=== PATIENT | female | born 1985 | race Caucasian/White ===

== ENCOUNTER 2016-12-29 20:26 | Emergency (ER) | payer OTHER ==
[2016-12-29 20:39] VITALS: TEMP 98.4
--- NOTE | 2016-12-29 21:26 | ED ---
General Adult HPI - General Chief complaint: Chest Pain Stated complaint: chest pain Time Seen by Provider: 12/29/16 20:54 Source: patient, family, RN notes reviewed, old records reviewed Mode of arrival: wheelchair Limitations: no limitations - History of Present Illness Initial comments: Chief complaint and history of present illness a 31-year-old female with here with her significant other. The patient reports for the past week she's been having anterior left-sided chest discomfort that radiates to the left shoulder area and sometimes down the arm. Twisting turning deep breathing coughing and pushing on it increases pain. Nausea but no vomiting no sweats. Denies any injuries. - Related Data Home Medications Medication Instructions Recorded Confirmed Acetaminophen Tab [Tylenol Tab] 650 mg PO Q6H PRN 12/29/16 12/29/16 Escitalopram [Lexapro] 20 mg PO DAILY 12/29/16 12/29/16 Ibuprofen [Motrin] 600 mg PO Q8HR PRN 12/29/16 12/29/16 Previous Rx's Medication Instructions Recorded Ibuprofen [Motrin] 600 mg PO Q6HR PRN #20 tab 12/29/16 Allergies Allergy/AdvReac Type Severity Reaction Status Date / Time Penicillins Allergy Anaphylaxis Verified 12/29/16 21:11 hydrocodone bitartrate AdvReac Nausea Verified 12/29/16 21:11 [From Vicodin] Review of Systems ROS Statement: Those systems with pertinent positive or pertinent negative responses have been documented in the HPI. review of systems no headache or visual acuity changes. The discomfort is intermittent and comes and goes but can be recreated by coughing or pushing hard on her anterior chest wall. No abdominal pain no back pain. No neuro deficits complained of. All systems are reviewed. Past medical problems significant for endometriosis and possibly pericarditis thickening consideration of her explanation of something that happened multiple years ago. The patient's other problems include surgeries 4 C-sections, she had tubal ligation followed by hysterectomy. She had a fractured ankle with plates and screws. Family history significant for cancers and include cervical , brain lymphoma. Patient has ALLERGIES to penicillin and hydrocodone. She does smoke strongly encouraged stop advised her family physician about things that could help her stop. ROS Other: All systems not noted in ROS Statement are negative. Past Medical History Additional Past Medical History / Comment(s): endometriosis, elevated liver enzymes, fx left ankle-WAS using crutches and has a partial "air cast" on. History of Any Multi-Drug Resistant Organisms: None Reported Past Surgical History: Section, Hysterectomy, Orthopedic Surgery, Tubal Ligation Additional Past Surgical History / Comment(s): c/s x 4, LT ANKLE ORIF 08-29- Past Anesthesia/Blood Transfusion Reactions: Previous Problems w/ Anesthesia Additional Past Anesthesia/Blood Transfusion Reaction / Comment(s): skin itching on face, unknown family anesthesia hx. Past Psychological History: Depression Smoking Status: Current every day smoker Past Alcohol Use History: None Reported Past Drug Use History: Marijuana Additional Drug Use History / Comment(s): up to three x daily General Exam - General Exam Comments Initial Comments: General: The patient is awake and alert, in no distress, and does not appear acutely ill. Complains of chest pain that seems to be reproducible by deep breathing coughing hard palpation over anterior chest wall. Vital signs show temperature 98.4 pulse 85 respiratory rate 20 pulse ox 90% on room air blood pressure 127/ 63. Elevated systolic noted. Patient will be seen by her family physician Eye: Pupils are equal, round and reactive to light, extra-ocular movements are intact ; there is normal conjunctiva bilaterally. No signs of icterus. Ears, nose, mouth and throat: There are moist mucous membranes and no oral lesions. Neck: The neck is supple, there is no tenderness . Cardiovascular: There is a regular rate and rhythm. No murmur, rub or gallop is appreciated. Chest wall pain seems to be reproducible by coughing or taking deep breath and leaning forward. Respiratory: Lungs are clear to auscultation, respirations are non-labored, breath sounds are equal. No wheezes, stridor, rales, or rhonchi. Deep breathing increases discomfort Gastrointestinal: Soft, non-distended, non-tender abdomen without masses or organomegaly noted. There is no rebound or guarding present. No CVA tenderness. Bowel sounds are unremarkable. Back: There is no tenderness to palpation in the midline. There is no obvious deformity. No rashes noted. Musculoskeletal: Normal ROM, no tenderness, There is no pedal edema. There is no calf tenderness or swelling. Sensation intact. Pulses equal bilaterally 2+. Neurological: No neuro deficits Skin: Skin is warm and dry and no rashes or lesions are noted. Limitations: no limitations Course Vital Signs 12/29/16 20:38 Temperature 98.4 F Pulse Rate 85 Respiratory 20 Rate Blood Pressure 127/63 O2 Sat by Pulse 98 Oximetry EKG Findings - EKG Comments: EKG Findings:: EKG was done and reviewed at 2050 hrs. showing normal sinus rhythm no acute ST elevation no ectopy no ischemic changes. Rate 82. Arm was 198 QRS 94 QT [address] Briscoe Medical Decision Making - Medical Decision Making Medical decision making; patient's white count is 9.1 hemoglobin 13.9 hematocrit 41.7. D-dimer normal at 0.48 potassium 4.0 BUN 9 with a creatinine 0.7 GFR greater than 60. Glucose 108 Chest x-ray is done and reviewed by radiologist his impression is heart and mediastinum are normal. Lungs are clear. Diaphragm is normal. Bony thorax and soft tissues appear normal. Impression normal chest no change. As read by Dr. Coughlin Discuss costochondritis setter. The patient will be given Toradol emergency room. Advised to take ibuprofen 600 every 6 hours. Gentle stretching. Follow- up with her family physician or return emergency room as needed - Lab Data Result diagrams: 12/29/16 21:32 12/29/16 21:32 Lab Results 12/29/16 12/29/16 12/29/16 Range/Units 21:32 21:32 21:32 WBC 9.1 (3.8-10.6) k/uL RBC 4.69 (3.80-5.40) m/uL Hgb 13.9 (11.4-16.0) gm/dL Hct 41.7 (34.0-46.0) % MCV 88.8 (80.0-100.0) fL MCH 29.7 (25.0-35.0) pg MCHC 33.4 (31.0-37.0) g/dL RDW 12.7 (11.5-15.5) % Plt Count 275 (150-450) k/uL Neutrophils % 62 % Lymphocytes % 32 % Monocytes % 3 % Eosinophils % 2 % Basophils % 0 % Neutrophils # 5.6 (1.3-7.7) k/uL Lymphocytes # 2.9 (1.0-4.8) k/uL Monocytes # 0.3 (0-1.0) k/uL Eosinophils # 0.2 (0-0.7) k/uL Basophils # 0.0 (0-0.2) k/uL PT (9.0-12.0) sec INR (<1.1) APTT (22.0-30.0) sec D-Dimer (<0.60) mg/L FEU Sodium 141 (137-145) mmol/L Potassium 4.0 (3.5-5.1) mmol/L Chloride 105 (98-107) mmol/L Carbon Dioxide 27 (22-30) mmol/L Anion Gap 9 mmol/L BUN 9 (7-17) mg/dL Creatinine 0.71 (0.52-1.04) mg/dL Est GFR (MDRD) Af Amer >60 (>60 ml/min/1.73 sqM) Est GFR (MDRD) Non-Af >60 (>60 ml/min/1.73 sqM) Glucose 108 H (74-99) mg/dL Calcium 9.3 (8.4-10.2) mg/dL Magnesium 2.0 (1.6-2.3) mg/dL Total Bilirubin 0.5 (0.2-1.3) mg/dL AST 27 (14-36) U/L ALT 46 (9-52) U/L Alkaline Phosphatase 90 (38-126) U/L Total Creatine Kinase 47 (30-135) U/L CK-MB (CK-2) <0.2 (0.0-2.4) ng/mL CK-MB (CK-2) Rel Index Troponin I <0.012 (0.000-0.034) ng/mL Total Protein 7.0 (6.3-8.2) g/dL Albumin 3.9 (3.5-5.0) g/dL 12/29/16 Range/Units 21:32 WBC (3.8-10.6) k/uL RBC (3.80-5.40) m/uL Hgb (11.4-16.0) gm/dL Hct (34.0-46.0) % MCV (80.0-100.0) fL MCH (25.0-35.0) pg MCHC (31.0-37.0) g/dL RDW (11.5-15.5) % Plt Count (150-450) k/uL Neutrophils % % Lymphocytes % % Monocytes % % Eosinophils % % Basophils % % Neutrophils # (1.3-7.7) k/uL Lymphocytes # (1.0-4.8) k/uL Monocytes # (0-1.0) k/uL Eosinophils # (0-0.7) k/uL Basophils # (0-0.2) k/uL PT 9.6 (9.0-12.0) sec INR 0.9 (<1.1) APTT 27.1 (22.0-30.0) sec D-Dimer 0.48 (<0.60) mg/L FEU Sodium (137-145) mmol/L Potassium (3.5-5.1) mmol/L Chloride (98-107) mmol/L Carbon Dioxide (22-30) mmol/L Anion Gap mmol/L BUN (7-17) mg/dL Creatinine (0.52-1.04) mg/dL Est GFR (MDRD) Af Amer (>60 ml/min/1.73 sqM) Est GFR (MDRD) Non-Af (>60 ml/min/1.73 sqM) Glucose (74-99) mg/dL Calcium (8.4-10.2) mg/dL Magnesium (1.6-2.3) mg/dL Total Bilirubin (0.2-1.3) mg/dL AST (14-36) U/L ALT (9-52) U/L Alkaline Phosphatase (38-126) U/L Total Creatine Kinase (30-135) U/L CK-MB (CK-2) (0.0-2.4) ng/mL CK-MB (CK-2) Rel Index Troponin I (0.000-0.034) ng/mL Total Protein (6.3-8.2) g/dL Albumin (3.5-5.0) g/dL Disposition Clinical Impression: Costochondritis, acute Disposition: HOME SELF-CARE Condition: Fair Instructions: Costochondritis (ED) Additional Instructions: Take ibuprofen 600 mg every 6 hours for discomfort. No heavy lifting to gentle stretching. Follow-up with your family physician. If you don't have one follow -up with Prescriptions: Ibuprofen [Motrin] 600 mg PO Q6HR PRN #20 tab PRN Reason: Pain Time of Disposition: 22:34
[2016-12-29 21:46] LABS: Basophils % (A) 0 %; CH 30.5; CHCM 34.5; Eosinophils # (A) 0.2 k/uL (0-0.7); Eosinophils % (A) 2 %; HCT 41.7 % (34.0-46.0); HDW 2.49; HGB 13.9 gm/dL (11.4-16.0); Luc # (Auto) 0.13; Luc % (Auto) 1; Lymphocytes # (A) 2.9 k/uL (1.0-4.8); Lymphocytes % (A) 32 %; MCH 29.7 pg (25.0-35.0); MCHC 33.4 g/dL (31.0-37.0); MCV 88.8 fL (80.0-100.0); Monocytes # (A) 0.3 k/uL (0-1.0); Monocytes % (A) 3 %; Neutrophils # (A) 5.6 k/uL (1.3-7.7); Neutrophils % (A) 62 %; RBC 4.69 m/uL (3.80-5.40); RDW 12.7 % (11.5-15.5); WBC 9.1 k/uL (3.8-10.6)
[2016-12-29 21:57] LABS: ALT 46 U/L (9-52); AST 27 U/L (14-36); Alkaline Phosphatase 90 U/L (38-126); Anion Gap 9 mmol/L; Blood Urea Nitrogen 9 mg/dL (7-17); Calcium 9.3 mg/dL (8.4-10.2); Carbon Dioxide 27 mmol/L (22-30); Chloride 105 mmol/L (98-107); Glucose 108 mg/dL (74-99); Non-African American GFR(MDRD) >60 (>60 ml/min/1.73 sqM); Sodium 141 mmol/L (137-145); Total Bilirubin 0.5 mg/dL (0.2-1.3)
[2016-12-29 21:59] LABS: INR 0.9 (<1.1)
[2016-12-29 22:00] LABS: Partial Thromboplastin Time 27.1 sec (22.0-30.0); Prothrombin Time 9.6 sec (9.0-12.0)
--- NOTE | 2016-12-29 22:06 | XR ---
EXAMINATION TYPE: XR chest 2V DATE OF EXAM: 12/29/2016 10:00 PM COMPARISON: 01/06/2014 HISTORY: Intermittent chest pain TECHNIQUE: Frontal and lateral views of the chest are obtained. FINDINGS: Heart and mediastinum are normal. Lungs are clear. Diaphragm is normal. Bony thorax and so ft tissues appear normal. IMPRESSION: Normal chest. No change.
[2016-12-29 22:08] LABS: Creatine Kinase 47 U/L (30-135)
[2016-12-29 22:20] LABS: Creatine Kinase MB <0.2 ng/mL (0.0-2.4); Troponin I <0.012 ng/mL (0.000-0.034)
[2016-12-29] MEDS ORDERED: KETOROLAC 30 MG/ML 1 ML VIAL IVP STA (22:30)
[2016-12-29 23:01] VITALS: BP 116/74; PULSE 71; RESP 16
== END 2016-12-29 23:01 | disposition home or self-care (01) ==
LOC: EC 20:26
DX: M94.0 Chondrocostal junction syndrome [Tietze] (principal); F32.9 Major depressive disorder, single episode, unspecified; Z88.5 Allergy status to narcotic agent; Z88.0 Allergy status to penicillin; Z88.8 Allergy status to other drugs, medicaments and biological substances; Z79.899 Other long term (current) drug therapy; F17.200 Nicotine dependence, unspecified, uncomplicated
CPT/HCPCS: 36415; 93005; 85379; 80053; 82550; 82553; 83735; 84484; 85025; 85610; 85730; 71020; 99285; 96374; J1885

== ENCOUNTER 2017-04-16 09:36 | Inpatient (IN) | payer MEDICAID, OTHER ==
--- NOTE | 2017-04-16 10:10 | ED ---
Psych HPI - General Chief Complaint: Abdominal Pain Stated Complaint: Abd pain Time Seen by Provider: 04/16/17 09:41 Source: patient, RN notes reviewed Mode of arrival: ambulatory - History of Present Illness Initial Comments: Patient is a 31-year-old female presents emergency room for psychiatric evaluation. Patient states she suffers from PTSD from her daughter passing away about 5 years ago. Patient states she's been on Lexapro for the past 5 years. Patient states she takes Lexapro on and off due to random episodes of severe depression. Patient states over the past few weeks she's been very depressed. Patient states been feeling suicidal. Patient states that she's been taking Lexapro for the past 3 weeks with no relief of symptoms. Patient states today he has been having severe suicidal thoughts and needs help. Patient denies homicidal ideations. Patient denies chest pain shortness of breath. Patient denies abdominal pain. Patient denies nausea or vomiting. Patient denies alcohol use. Patient states she smoked marijuana this morning. Patient denies any other drug use. Patient denies any past medical history. Patient denies visual or auditory hallucinations. - Related Data Home Medications Medication Instructions Recorded Confirmed Escitalopram [Lexapro] 20 mg PO DAILY 12/29/16 04/16/17 Ibuprofen [Motrin] 600 mg PO QID PRN 12/29/16 04/16/17 Albuterol Sulfate [Ventolin Hfa] 3 puff INHALATION RT-Q4H PRN 04/16/17 04/16/17 Hydrocodone/Acetaminophen [[place] 1 tab PO TID PRN 04/16/17 04/16/17 10-325] Allergies Allergy/AdvReac Type Severity Reaction Status Date / Time Penicillins Allergy Rash/Hives Verified 04/16/17 09:49 hydrocodone bitartrate AdvReac Nausea Verified 04/16/17 09:49 [From Vicodin] Review of Systems ROS Statement: Those systems with pertinent positive or pertinent negative responses have been documented in the HPI. ROS Other: All systems not noted in ROS Statement are negative. Past Medical History Additional Past Medical History / Comment(s): endometriosis, elevated liver enzymes, fx left ankle-WAS using crutches and has a partial "air cast" on. History of Any Multi-Drug Resistant Organisms: None Reported Past Surgical History: Section, Hysterectomy, Orthopedic Surgery, Tubal Ligation Additional Past Surgical History / Comment(s): c/s x 4, LT ANKLE ORIF --14 Past Anesthesia/Blood Transfusion Reactions: Previous Problems w/ Anesthesia Additional Past Anesthesia/Blood Transfusion Reaction / Comment(s): skin itching on face, unknown family anesthesia hx. Past Psychological History: Depression Smoking Status: Current every day smoker Past Alcohol Use History: None Reported Past Drug Use History: Marijuana Additional Drug Use History / Comment(s): up to three x daily General Exam - General Exam Comments Initial Comments: Sitting in exam room, no acute distress, tearful. Limitations: no limitations General appearance: alert, in no apparent distress Head exam: Present: atraumatic, normocephalic, normal inspection Eye exam: Present: normal appearance ENT exam: Present: normal exam Neck exam: Present: normal inspection Respiratory exam: Present: normal lung sounds bilaterally. Absent: respiratory distress Cardiovascular Exam: Present: regular rate, normal rhythm, normal heart sounds Extremities exam: Present: normal inspection Back exam: Present: normal inspection Neurological exam: Present: alert, oriented X3, CN II-XII intact, normal gait Psychiatric exam: Present: normal affect, depressed Skin exam: Present: warm, dry, intact, normal color. Absent: rash Course Vital Signs 04/16/17 09:37 Temperature 98.9 F Pulse Rate 104 H Respiratory 20 Rate Blood Pressure 119/69 O2 Sat by Pulse 98 Oximetry Medical Decision Making - Medical Decision Making patient is a 31her old female presents to the emergency room for psychiatric evaluation. Patient initially came here and told triage that she was having abdominal pain. When I came in and spoke to patient she did admit that she does not have abdominal pain and was feeling suicidal. Patient medically cleared to be evaluated by psych. Psych did evaluate patient and patient does meet admission criteria. - Lab Data Lab Results 04/16/17 04/16/17 04/16/17 Range/Units 11:30 11:30 11:30 Urine Color Yellow Urine Appearance Cloudy H (Clear) Urine pH 6.0 (5.0-8.0) Ur Specific [place] 1.021 (1.001-1.035) Urine Protein Trace H (Negative) Urine Glucose (UA) Negative (Negative) Urine Ketones Trace H (Negative) Urine Blood Negative (Negative) Urine Nitrite Negative (Negative) Urine Bilirubin Negative (Negative) Urine Urobilinogen 2.0 (<2.0) mg/dL Ur Leukocyte Esterase Negative (Negative) Urine WBC 2 (0-5) /hpf Ur Squamous Epith Cells 9 H (0-4) /hpf Urine Bacteria Rare H (None) /hpf Urine Mucus Few H (None) /hpf Urine HCG, Qual Not Detected (Not Detectd) Urine Opiates Screen Not Detected (NotDetected) Ur Oxycodone Screen Not Detected (NotDetected) Urine Methadone Screen Not Detected (NotDetected) Ur Propoxyphene Screen Not Detected (NotDetected) Ur Barbiturates Screen Not Detected (NotDetected) U Tricyclic Antidepress Not Detected (NotDetected) Ur Phencyclidine Scrn Not Detected (NotDetected) Ur Amphetamines Screen Not Detected (NotDetected) U Methamphetamines Scrn Not Detected (NotDetected) U Benzodiazepines Scrn Not Detected (NotDetected) Urine Cocaine Screen Not Detected (NotDetected) U Marijuana (THC) Screen Detected H (NotDetected) Disposition Clinical Impression: PTSD (post-traumatic stress disorder), Suicidal ideation Disposition: ADMITTED IP TO THIS HOSP Condition: Stable Decision Date: 04/16/17
[2017-04-16 11:52] LABS: Appearance,Urine Cloudy (Clear); Bacteria,Urine Rare /hpf; Bilirubin,Urine Negative (Negative); Glucose,Urine (UA) Negative (Negative); Ketones,Urine Trace (Negative); Leukocyte Esterase,Urine Negative (Negative); Mucus,Urine Few /hpf; Nitrite,Urine Negative (Negative); Particle Count 10368; Protein,Urine Trace (Negative); Specific Gravity,Urine 1.021 (1.001-1.035); Squamous Epithelial Cell,Urine 9 /hpf (0-4); UA Billing (MACRO vs. MICRO) MICRO; WBC,Urine 2 /hpf (0-5)
[2017-04-16] MEDS ORDERED: ACETAMINOPHEN TAB 325 MG TAB PO PRN (12:27)
[2017-04-16] MEDS ORDERED: MAGNESIUM HYDROXIDE 2,400 MG/10 ML CUP PO PRN (12:27)
[2017-04-16] MEDS ORDERED: LORazepam 1 MG TAB PO PRN (12:27)
[2017-04-16] MEDS ORDERED: MAG HYDROX/AL HYDROX/SIMETH 30 ML CUP PO PRN (12:27)
[2017-04-16] MEDS ORDERED: IBUPROFEN 600 MG TAB PO PRN (12:32)
[2017-04-16] MEDS ORDERED: ALBUTEROL INHALER 60 PUFF/8 GM INHALER INHALATION PRN (12:32)
[2017-04-16] MEDS ORDERED: LORazepam 2 MG/ML SYRINGE IM PRN (14:15)
[2017-04-16] MEDS ORDERED: NICOTINE 14MG/24HR PATCH TRANSDERM STA (16:47)
[2017-04-16] MEDS: MUPIROCIN CALCIUM 2% CREAM 15 GM TUBE TOPICAL SCH (21:35)
[2017-04-17 06:41] VITALS: BP 103/59; PULSE 75; RESP 16; TEMP 98
[2017-04-17] MEDS: MUPIROCIN CALCIUM 2% CREAM 15 GM TUBE TOPICAL SCH (08:35)
[2017-04-17 08:51] LABS: Basophils % (A) 0 %; CH 30.4; CHCM 33.6; Eosinophils # (A) 0.1 k/uL (0-0.7); Eosinophils % (A) 1 %; HCT 46.5 % (34.0-46.0); HDW 2.42; HGB 15.2 gm/dL (11.4-16.0); Luc # (Auto) 0.13; Luc % (Auto) 1; Lymphocytes % (A) 23 %; MCH 29.7 pg (25.0-35.0); MCHC 32.7 g/dL (31.0-37.0); MCV 90.8 fL (80.0-100.0); Mean Platelet Volume 7.1; Monocytes # (A) 0.3 k/uL (0-1.0); Monocytes % (A) 4 %; Neutrophils # (A) 6.3 k/uL (1.3-7.7); Neutrophils % (A) 71 %; RBC 5.12 m/uL (3.80-5.40); RDW 12.9 % (11.5-15.5); WBC 8.8 k/uL (3.8-10.6); WBC (Perox) 8.92
[2017-04-17] MEDS ORDERED: NICOTINE 14MG/24HR PATCH TRANSDERM SCH (09:00)
[2017-04-17] MEDS ORDERED: ESCITALOPRAM 20 MG TAB PO SCH (09:00)
[2017-04-17 09:11] LABS: ALT 39 U/L (9-52); AST 27 U/L (14-36); Alkaline Phosphatase 92 U/L (38-126); Anion Gap 11 mmol/L; Blood Urea Nitrogen 7 mg/dL (7-17); Calcium 9.7 mg/dL (8.4-10.2); Carbon Dioxide 24 mmol/L (22-30); Chloride 109 mmol/L (98-107); Glucose 95 mg/dL (74-99); Non-African American GFR(MDRD) >60 (>60 ml/min/1.73 sqM); Sodium 144 mmol/L (137-145); Total Bilirubin 0.8 mg/dL (0.2-1.3); Total Protein 7.3 g/dL (6.3-8.2)
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
== END 2017-04-17 13:35 | disposition home or self-care (01) | DRG 882 ==
LOC: EC 09:36 → 3MHU 12:23
PROVIDERS: ADMIT Psychiatry & Neurology Addiction Medicine; ATTEND Psychiatry & Neurology Addiction Medicine
DX: F43.29 Adjustment disorder with other symptoms (principal); R45.851 Suicidal ideations; Z86.32 Personal history of gestational diabetes; S61.512A Laceration without foreign body of left wrist, initial encounter; F41.0 Panic disorder [episodic paroxysmal anxiety]; N80.9 Endometriosis, unspecified; E66.9 Obesity, unspecified; F17.200 Nicotine dependence, unspecified, uncomplicated; F12.90 Cannabis use, unspecified, uncomplicated; Z82.49 Family history of ischemic heart disease and other diseases of the circulatory system; Z79.899 Other long term (current) drug therapy; Z88.5 Allergy status to narcotic agent; Z88.0 Allergy status to penicillin; Z86.59 Personal history of other mental and behavioral disorders; Z79.1 Long term (current) use of non-steroidal anti-inflammatories (NSAID); Z79.891 Long term (current) use of opiate analgesic; Z63.0 Problems in relationship with spouse or partner; Z90.710 Acquired absence of both cervix and uterus; Z68.38 Body mass index [BMI] 38.0-38.9, adult; Z98.51 Tubal ligation status; Z81.1 Family history of alcohol abuse and dependence; Z81.8 Family history of other mental and behavioral disorders; Z87.81 Personal history of (healed) traumatic fracture; X78.1XXA Intentional self-harm by knife, initial encounter; Y92.009 Unspecified place in unspecified non-institutional (private) residence as the place of occurrence of the external cause
CPT/HCPCS: 80053; 80306; 81001; 81025; 82075; 84443; 85025; 99284

== ENCOUNTER 2017-09-03 15:01 | Emergency (ER) | payer OTHER ==
[2017-09-03] MEDS ORDERED: KETOROLAC 60 MG/2 ML VIAL IM STA (15:46)
--- NOTE | 2017-09-03 15:48 | ED ---
General Adult HPI - General Chief complaint: Urogenital Stated complaint: Female Time Seen by Provider: 09/03/17 15:10 Source: patient, RN notes reviewed Mode of arrival: ambulatory Limitations: no limitations - History of Present Illness Initial comments: This is a 31-year-old female presents emergency department stating she had a hysterectomy last year. Patient states she still has both of her ovaries. Patient states in the last 3 weeks she's been having pain in her lower abdomen right where her hysterectomy scar is. Patient states that she lies flat it doesn't hurt. Patient states she coughs or sneezes it hurts right along that scar. Patient denies any nausea vomiting diarrhea. Patient denies any vaginal discharge. Patient denies any problems with eating or drinking. Patient denies any recent fever or chills. Patient denies any dysuria hematuria urinary frequency. - Related Data Home Medications Medication Instructions Recorded Confirmed No Known Home Medications [No 09/03/17 09/03/17 Known Home Medications] Allergies Allergy/AdvReac Type Severity Reaction Status Date / Time Penicillins Allergy Rash/Hives Verified 09/03/17 15:48 hydrocodone bitartrate AdvReac Nausea Verified 09/03/17 15:48 [From Vicodin] Review of Systems ROS Statement: Those systems with pertinent positive or pertinent negative responses have been documented in the HPI. ROS Other: All systems not noted in ROS Statement are negative. Past Medical History Additional Past Medical History / Comment(s): endometriosis, elevated liver enzymes, fx left ankle-WAS using crutches and has a partial "air cast" on. History of Any Multi-Drug Resistant Organisms: None Reported Past Surgical History: Section, Hysterectomy, Orthopedic Surgery, Tubal Ligation Additional Past Surgical History / Comment(s): c/s x 4, LT ANKLE ORIF 08-29-14 Past Anesthesia/Blood Transfusion Reactions: Previous Problems w/ Anesthesia Additional Past Anesthesia/Blood Transfusion Reaction / Comment(s): skin itching on face, unknown family anesthesia hx. Past Psychological History: Depression, PTSD Smoking Status: Current every day smoker Past Alcohol Use History: None Reported Past Drug Use History: Marijuana - Past Family History Father Additional Family Medical History / Comment(s): Father is alive at age 50 with history of alcoholism, hypertension, hyperlipidemia. Mother Additional Family Medical History / Comment(s): Mother is alive at age 53 with history of brain aneurysm and alcohol abuse. Brother(s) Additional Family Medical History / Comment(s): Patient has 3 half brothers. One has history of lead poisoning, one brother has history of scoliosis, one has no major medical problems. Patient does not have any sisters. Patient has 3 children currently living. One has from a drowning accident. And patient cares for her stepdaughter as well. General Exam - General Exam Comments Initial Comments: GENERAL: Patient is well-developed and well-nourished. Patient is nontoxic and well- hydrated and is in no acute distress. ENT: Neck is soft and supple. No significant lymphadenopathy is noted. Oropharynx is clear. Moist mucous membranes. Neck has full range of motion without eliciting any pain. EYES: The sclera were anicteric and conjunctiva were pink and moist. Extraocular movements were intact and pupils were equal round and reactive to light. Eyelids were unremarkable. PULMONARY: Unlabored respirations. Good breath sounds bilaterally. No audible rales rhonchi or wheezing was noted. CARDIOVASCULAR: There is a regular rate and rhythm without any murmurs gallops or rubs. ABDOMEN: Patient has some abdominal pain along the hysterectomy incision but there is no bulging no obvious hernia no redness or swelling. SKIN: Skin is clear with no lesions or rashes and otherwise unremarkable. NEUROLOGIC: Patient is alert and oriented x3. Cranial nerves II through XII are grossly intact. Motor and sensory are also intact. Normal speech, volume and content. Symmetrical smile. MUSCULOSKELETAL: Normal extremities with adequate strength and full range of motion. No lower extremity swelling or edema. No calf tenderness. LYMPHATICS: No significant lymphadenopathy is noted PSYCHIATRIC: Normal psychiatric evaluation. Normal interpersonal interactions appears functionally intact in deals appropriately with others. No signs of depression. No signs of anxiety. Limitations: no limitations Course Vital Signs 09/03/17 15:11 Temperature 98.1 F Pulse Rate 80 Respiratory 16 Rate Blood Pressure 130/70 O2 Sat by Pulse 98 Oximetry Medical Decision Making - Lab Data Result diagrams: 09/03/17 16:03 09/03/17 16:03 Lab Results 09/03/17 09/03/17 09/03/17 Range/Units 16:03 16:03 16:03 WBC 10.4 (3.8-10.6) k/uL RBC 4.74 (3.80-5.40) m/uL Hgb 14.7 (11.4-16.0) gm/dL Hct 43.2 (34.0-46.0) % MCV 91.2 (80.0-100.0) fL MCH 31.0 (25.0-35.0) pg MCHC 34.0 (31.0-37.0) g/dL RDW 14.0 (11.5-15.5) % Plt Count 313 (150-450) k/uL Neutrophils % 67 % Lymphocytes % 27 % Monocytes % 4 % Eosinophils % 1 % Basophils % 0 % Neutrophils # 6.9 (1.3-7.7) k/uL Lymphocytes # 2.8 (1.0-4.8) k/uL Monocytes # 0.4 (0-1.0) k/uL Eosinophils # 0.1 (0-0.7) k/uL Basophils # 0.0 (0-0.2) k/uL Sodium 140 (137-145) mmol/L Potassium 4.0 (3.5-5.1) mmol/L Chloride 109 H (98-107) mmol/L Carbon Dioxide 22 (22-30) mmol/L Anion Gap 9 mmol/L BUN 9 (7-17) mg/dL Creatinine 0.84 (0.52-1.04) mg/dL Est GFR (MDRD) Af Amer >60 (>60 ml/min/1.73 sqM) Est GFR (MDRD) Non-Af >60 (>60 ml/min/1.73 sqM) Glucose 91 (74-99) mg/dL Calcium 9.2 (8.4-10.2) mg/dL Total Bilirubin 0.2 (0.2-1.3) mg/dL AST 22 (14-36) U/L ALT 61 H (9-52) U/L Alkaline Phosphatase 102 (38-126) U/L Total Protein 7.0 (6.3-8.2) g/dL Albumin 4.0 (3.5-5.0) g/dL Urine Color Yellow Urine Appearance Clear (Clear) Urine pH 6.5 (5.0-8.0) Ur Specific [place] 1.020 (1.001-1.035) Urine Protein Trace H (Negative) Urine Glucose (UA) Negative (Negative) Urine Ketones Negative (Negative) Urine Blood Negative (Negative) Urine Nitrite Negative (Negative) Urine Bilirubin Negative (Negative) Urine Urobilinogen 2.0 (<2.0) mg/dL Ur Leukocyte Esterase Negative (Negative) Disposition Clinical Impression: Abdominal muscle strain Disposition: HOME SELF-CARE Condition: Good Instructions: Muscle Strain (ED) Additional Instructions: Patient should take motrin every 6 hours Referrals: Nonstaff,Physician [Primary Care Provider] - 1-2 days Time of Disposition: 17:45
[2017-09-03 16:19] LABS: Basophils % (A) 0 %; CH 31.4; CHCM 34.6; Eosinophils # (A) 0.1 k/uL (0-0.7); Eosinophils % (A) 1 %; HCT 43.2 % (34.0-46.0); HDW 2.49; HGB 14.7 gm/dL (11.4-16.0); Luc % (Auto) 1; Lymphocytes # (A) 2.8 k/uL (1.0-4.8); Lymphocytes % (A) 27 %; MCV 91.2 fL (80.0-100.0); Mean Platelet Volume 7.6; Monocytes # (A) 0.4 k/uL (0-1.0); Monocytes % (A) 4 %; Neutrophils # (A) 6.9 k/uL (1.3-7.7); Neutrophils % (A) 67 %; RBC 4.74 m/uL (3.80-5.40); WBC 10.4 k/uL (3.8-10.6); WBC (Perox) 10.18
[2017-09-03 16:22] LABS: Appearance,Urine Clear (Clear); Bilirubin,Urine Negative (Negative); Glucose,Urine (UA) Negative (Negative); Ketones,Urine Negative (Negative); Leukocyte Esterase,Urine Negative (Negative); Nitrite,Urine Negative (Negative); PH, Urine 6.5 (5.0-8.0); Protein,Urine Trace (Negative); UA Billing (MACRO vs. MICRO) CHEM
[2017-09-03 16:33] LABS: ALT 61 U/L (9-52); AST 22 U/L (14-36); Alkaline Phosphatase 102 U/L (38-126); Anion Gap 9 mmol/L; Blood Urea Nitrogen 9 mg/dL (7-17); Calcium 9.2 mg/dL (8.4-10.2); Carbon Dioxide 22 mmol/L (22-30); Chloride 109 mmol/L (98-107); Glucose 91 mg/dL (74-99); Non-African American GFR(MDRD) >60 (>60 ml/min/1.73 sqM); Sodium 140 mmol/L (137-145); Total Bilirubin 0.2 mg/dL (0.2-1.3)
[2017-09-03 18:31] VITALS: BP 120/66; PULSE 69; RESP 19; TEMP 98.4
== END 2017-09-03 18:31 | disposition home or self-care (01) ==
LOC: EC 15:01
DX: S39.011A Strain of muscle, fascia and tendon of abdomen, initial encounter (principal); R05 Cough; F17.200 Nicotine dependence, unspecified, uncomplicated; Z88.0 Allergy status to penicillin; Z88.5 Allergy status to narcotic agent; Z90.710 Acquired absence of both cervix and uterus; Z98.51 Tubal ligation status
CPT/HCPCS: 99283 ×2; 96372 ×2; 36415; 80053; 85025; 81003; J1885

== ENCOUNTER 2018-07-18 12:12 | Emergency (ER) | payer OTHER ==
[2018-07-18 12:38] VITALS: RESP 17
--- NOTE | 2018-07-18 12:54 | ED ---
Lower Extremity Injury HPI - General Chief Complaint: Extremity Injury, Lower Stated Complaint: left knee pain Time Seen by Provider: 07/18/18 12:41 Source: patient, RN notes reviewed Mode of arrival: wheelchair Limitations: no limitations - History of Present Illness Initial Comments: This a 32-year-old female presents emergency Department with chief complaint of left knee pain. Patient states she's had some ongoing issues with her knee but states it's much more noticeable that she has been working longer hours and standing on her feet 6 days a week. Patient states that he feels he feels crunching in her knee states is more on the lateral aspect and worse when she is standing. Patient denies any swelling, bruising. Patient denies any fever, chills, redness or any discoloration to her leg or knee. Patient denies any exact trauma but states that a little over a year ago she had surgery on her left ankle for fracture. - Related Data Previous Rx's Medication Instructions Recorded Ibuprofen [Motrin] 600 mg PO Q8HR PRN #30 tab 07/18/18 Allergies Allergy/AdvReac Type Severity Reaction Status Date / Time Penicillins Allergy Rash/Hives Verified 09/03/17 15:48 hydrocodone bitartrate AdvReac Nausea Verified 09/03/17 15:48 [From Vicodin] Review of Systems ROS Statement: Those systems with pertinent positive or pertinent negative responses have been documented in the HPI. ROS Other: All systems not noted in ROS Statement are negative. Past Medical History Additional Past Medical History / Comment(s): endometriosis, elevated liver enzymes, fx left ankle-WAS using crutches and has a partial "air cast" on. History of Any Multi-Drug Resistant Organisms: None Reported Past Surgical History: Section, Hysterectomy, Orthopedic Surgery, Tubal Ligation Additional Past Surgical History / Comment(s): c/s x 4, LT ANKLE ORIF 08-29-14 Past Anesthesia/Blood Transfusion Reactions: Previous Problems w/ Anesthesia Additional Past Anesthesia/Blood Transfusion Reaction / Comment(s): skin itching on face, unknown family anesthesia hx. Past Psychological History: Depression, PTSD Smoking Status: Current every day smoker Past Alcohol Use History: None Reported Past Drug Use History: Marijuana - Past Family History Father Additional Family Medical History / Comment(s): Father is alive at age 50 with history of alcoholism, hypertension, hyperlipidemia. Mother Additional Family Medical History / Comment(s): Mother is alive at age 53 with history of brain aneurysm and alcohol abuse. Brother(s) Additional Family Medical History / Comment(s): Patient has 3 half brothers. One has history of lead poisoning, one brother has history of scoliosis, one has no major medical problems. Patient does not have any sisters. Patient has 3 children currently living. One has from a drowning accident. And patient cares for her stepdaughter as well. General Exam Limitations: no limitations General appearance: alert, in no apparent distress Head exam: Present: atraumatic, normocephalic, normal inspection Respiratory exam: Present: normal lung sounds bilaterally. Absent: respiratory distress, wheezes, rales, rhonchi, stridor Cardiovascular Exam: Present: regular rate, normal rhythm, normal heart sounds. Absent: systolic murmur, diastolic murmur, rubs, gallop, clicks Extremities exam: Present: other (Left knee patient does have full range of motion neurovascular intact there is some tenderness to lateral aspect no swelling no erythema or increased warmth. Patient has some discomfort with varus stress, no laxity noted with anterior posterior) Skin exam: Present: warm, dry, intact, normal color. Absent: rash Course Vital Signs 07/18/18 12:35 Temperature 98.4 F Pulse Rate 82 Respiratory 17 Rate Blood Pressure 122/66 O2 Sat by Pulse 100 Oximetry Medical Decision Making - Medical Decision Making 32-year-old female presented to the emergency room for left knee pain. This is been ongoing issue. Patient may have underlying meniscus injury. Patient will be given knee brace, advised to follow-up with her orthopedic surgeon Dr. Gandhi. She'll be started on anti-inflammatories and return parameters were discussed. Disposition Clinical Impression: Left knee pain Disposition: HOME SELF-CARE Condition: Stable Instructions: Knee Pain (ED) Additional Instructions: Please return to the Emergency Department if symptoms worsen or any other concerns. Prescriptions: Ibuprofen [Motrin] 600 mg PO Q8HR PRN #30 tab PRN Reason: Pain Is patient prescribed a controlled substance at d/c from ED?: No Referrals: Ava Macias DO [Primary Care Provider] - 1-2 days Braydon Junior MD [STAFF PHYSICIAN] - 1-2 days Time of Disposition: 13:34
--- NOTE | 2018-07-18 13:27 | XR ---
EXAMINATION TYPE: XR knee complete LT , 3 VIEWS DATE OF EXAM ORDERED: 07/18/2018 HISTORY: Pain. COMPARISON: Previous study dated 02/02/2015. FINDINGS: No fracture, dislocation or joint effusion is seen. IMPRESSION: NO ACUTE OSSEOUS LESION.
[2018-07-18 14:05] VITALS: BP 101/55; PULSE 74; TEMP 97.7
== END 2018-07-18 14:05 | disposition home or self-care (01) ==
LOC: EC 12:12
DX: M25.562 Pain in left knee (principal); F17.200 Nicotine dependence, unspecified, uncomplicated; Z88.0 Allergy status to penicillin; Z88.5 Allergy status to narcotic agent
CPT/HCPCS: 99283

== ENCOUNTER → 2018-09-03 | Outpatient (CLI) | payer OTHER ==
--- NOTE | 2018-09-03 16:56 | XR ---
EXAMINATION TYPE: XR orbit detect foreign body DATE OF EXAM: 09/03/2018 COMPARISON: NONE HISTORY: Possible foreign body TECHNIQUE: 3 views FINDINGS: There is no evidence of radiopaque foreign body. Orbital margins are intact. Paranasal sinu ses appear normal. IMPRESSION: No foreign body seen.
--- NOTE | 2018-09-03 18:21 | MR ---
EXAMINATION TYPE: MR knee LT wo con DATE OF EXAM: 09/03/2018 COMPARISON: Plain film 08/06/2018 from outside institution HISTORY: Pain in left knee TECHNIQUE: Multiplanar, multisequence imaging of the left knee is performed without IV contrast. FINDINGS: MEDIAL MENISCUS: Anterior and posterior horns are intact without tear. LATERAL MENISCUS: Anterior and posterior horns are intact without tear. CRUCIATE LIGAMENTS: The anterior and posterior cruciate ligaments are intact and unremarkable. COLLATERAL LIGAMENTS: The medial collateral ligament and lateral collateral ligament complex are inta ct and unremarkable. EXTENSOR MECHANISM: Visualized quadriceps and patellar tendons are intact. EFFUSION: There is a small knee joint effusion. POPLITEAL CYST: Minute semimembranosus gastrocnemius cyst noted TRICOMPARTMENT SPACES: Maintained CARTILAGE: Question some increased signal within the articular cartilage inferiorly at the posterior patella, findings suggest grade 2 to grade III chondromalacia BONE MARROW SIGNAL: No focal abnormal marrow signal is appreciated. OTHER: Minimal subcutaneous edema present. IMPRESSION: There is a small joint effusion. Question some thinning of the articular cartilage at the posterior p atella. No evident meniscal tear.
== END ==
LOC: RADMRIMAIN 16:20
PROVIDERS: ATTEND Orthopaedic Surgery
DX: M25.462 Effusion, left knee (principal); Z01.818 Encounter for other preprocedural examination
CPT/HCPCS: 70030

== ENCOUNTER 2020-06-22 12:06 | Emergency (ER) | payer OTHER ==
[2020-06-22 12:16] VITALS: BP 118/75; PULSE 89; RESP 20; TEMP 98.5
[2020-06-22] MEDS ORDERED: KETOROLAC 30 MG/ML 1 ML VIAL IVP STA (12:56)
[2020-06-22 14:03] LABS: Basophils # (A) 0.1 k/uL (0-0.2); Basophils % (A) 1 %; Eosinophils # (A) 0.2 k/uL (0-0.7); Eosinophils % (A) 2 %; HCT 45.8 % (34.0-46.0); Lymphocytes # (A) 2.5 k/uL (1.0-4.8); Lymphocytes % (A) 24 %; MCH 29.7 pg (25.0-35.0); MCHC 32.7 g/dL (31.0-37.0); MCV 90.9 fL (80.0-100.0); Mean Platelet Volume 7.7; Monocytes # (A) 0.4 k/uL (0-1.0); Monocytes % (A) 3 %; Neutrophils # (A) 7.2 k/uL (1.3-7.7); Neutrophils % (A) 69 %; Platelet Count 303 k/uL (150-450); RBC 5.03 m/uL (3.80-5.40); RDW 12.6 % (11.5-15.5); WBC 10.5 k/uL (3.8-10.6)
[2020-06-22 14:12] LABS: ALT 29 U/L (4-34); AST 22 U/L (14-36); African American GFR (CKD) >90 (>60 ml/min/1.73 sqM); Albumin 4.1 g/dL (3.5-5.0); Alkaline Phosphatase 101 U/L (38-126); Anion Gap 7 mmol/L; Blood Urea Nitrogen 9 mg/dL (7-17); Calcium 9.6 mg/dL (8.4-10.2); Carbon Dioxide 27 mmol/L (22-30); Chloride 107 mmol/L (98-107); Glucose 96 mg/dL (74-99); Non-African American GFR(CKD) >90 (>60 ml/min/1.73 sqM); Sodium 141 mmol/L (137-145); Total Bilirubin 0.3 mg/dL (0.2-1.3); Total Protein 6.9 g/dL (6.3-8.2)
--- NOTE | 2020-06-22 14:20 | ED ---
Abdominal Pain HPI - General Chief Complaint: Abdominal Pain Stated Complaint: ABD pain Time Seen by Provider: 06/22/20 12:40 Source: patient Mode of arrival: wheelchair Limitations: no limitations - History of Present Illness Initial Comments: Patient is a 34-year-old female with past history of endometriosis, and total hysterectomy who presents to the emergency room with reported right suprapubic pain. Patient states that she has a history of a mass adjacent to her scar. She followed with an [facility] out of [place] for this. Reports that she had an MRI several years ago and at that time they thought that she was not a surgical candidate until it enlarged in size. Patient reports that 4 days ago she was walking her dog when her dog took off after another dog. It pulled her forward. She states she had's draining to her right groin and started having pain near the site. The pain radiates down to the anterior surface of her right thigh. Pain is worse with movement and ambulation. She has not been taking any medications at home with her symptoms. Denies any numbness or tingling in her lower extremity. Denies palpable bulge to the groin. No diarrhea, constipation or melenic stools. Denies dysuria, hematuria or difficulty voiding. No back pain. No fevers or chills. Does admit to nausea without vomiting. Patient is concerned for possible change or rupture to the abdominal mass and therefore came into the emergency room for evaluation - Related Data Previous Rx's Medication Instructions Recorded Acetaminophen-Codeine 300-30mg 1 tab PO Q4H PRN #18 tablet 06/22/20 [Tylenol #3] Allergies Allergy/AdvReac Type Severity Reaction Status Date / Time Penicillins Allergy Rash/Hives Verified 06/22/20 13:52 hydrocodone bitartrate AdvReac Nausea Verified 06/22/20 13:52 [From Vicodin] Review of Systems ROS Statement: Those systems with pertinent positive or pertinent negative responses have been documented in the HPI. ROS Other: All systems not noted in ROS Statement are negative. Past Medical History Additional Past Medical History / Comment(s): endometriosis, elevated liver enzymes, fx left ankle-WAS using crutches and has a partial "air cast" on. History of Any Multi-Drug Resistant Organisms: None Reported Past Surgical History: Section, Hysterectomy, Orthopedic Surgery, Tubal Ligation Additional Past Surgical History / Comment(s): c/s x 4, LT ANKLE ORIF 08-29-14, lumpectomy to lt side of scar Past Anesthesia/Blood Transfusion Reactions: Previous Problems w/ Anesthesia Additional Past Anesthesia/Blood Transfusion Reaction / Comment(s): skin itching on face, unknown family anesthesia hx. Past Psychological History: Depression, PTSD Smoking Status: Current every day smoker Past Alcohol Use History: None Reported Past Drug Use History: Marijuana - Past Family History Father Additional Family Medical History / Comment(s): Father is alive at age 50 with history of alcoholism, hypertension, hyperlipidemia. Mother Additional Family Medical History / Comment(s): Mother is alive at age 53 with history of brain aneurysm and alcohol abuse. Brother(s) Additional Family Medical History / Comment(s): Patient has 3 half brothers. One has history of lead poisoning, one brother has history of scoliosis, one has no major medical problems. Patient does not have any sisters. Patient has 3 children currently living. One has from a drowning accident. And patient cares for her stepdaughter as well. General Exam Limitations: no limitations General appearance: alert, in no apparent distress Head exam: Present: atraumatic, normocephalic, normal inspection Eye exam: Present: normal appearance, PERRL, EOMI. Absent: scleral icterus, conjunctival injection, periorbital swelling ENT exam: Present: normal exam, mucous membranes moist Neck exam: Present: normal inspection. Absent: tenderness, meningismus, lymphadenopathy Respiratory exam: Present: normal lung sounds bilaterally. Absent: respiratory distress, wheezes, rales, rhonchi, stridor Cardiovascular Exam: Present: regular rate, normal rhythm, normal heart sounds. Absent: systolic murmur, diastolic murmur, rubs, gallop, clicks GI/Abdominal exam: Present: soft, tenderness (near the right side of the p atients scar. Underlying palpable induration. ), normal bowel sounds. Absent: distended, guarding, rebound, rigid Extremities exam: Present: normal inspection, full ROM, normal capillary refill. Absent: tenderness, pedal edema, joint swelling, calf tenderness Back exam: Present: normal inspection Neurological exam: Present: alert, oriented X3, CN II-XII intact Psychiatric exam: Present: normal affect, normal mood Skin exam: Present: warm, dry, intact, normal color. Absent: rash Course Vital Signs 06/22/20 12:13 Temperature 98.5 F Pulse Rate 89 Respiratory 20 Rate Blood Pressure 118/75 O2 Sat by Pulse 98 Oximetry Medical Decision Making - Medical Decision Making Upon arrival the patient is placed into room 6. A thorough history and physical exam was performed. Peripheral IV was established. Laboratory studies were conducted. Patient was given 30 mg of Toradol IV for pain control. Patient has CT of her abdomen performed because of her reported pain with concern for previous abdominal mass. Laboratory studies are unremarkable. UA is negative. CT of the patient's abdomen and pelvis demonstrates solid soft tissue irregular area within the inferior most portion of the rectus abdominis muscle. Hb stable at 15. No concerning for infectious symptoms. No overlying skin changes. Patient still has pain and therefore is informal grams of morphine. I did discuss the diagnosis, differential treatment options. Patient will be discharged home. She has seen Dr. Robertson previous in the past as well as an [facility] out of the car [employer]. I did instruct that she should follow-up with them in regards to her symptoms and possible surgical treatment options. Patient understood this. She does tolerate Tylenol threes and therefore was given a prescription. Narcotic form is signed by patient knowing the risks and benefits of treatment. Patient is asked to return to the emergency department for any new or worsening symptoms. Patient discharged home in stable condition - Lab Data Result diagrams: 06/22/20 13:05 06/22/20 13:05 Lab Results 06/22/20 06/22/20 06/22/20 Range/Units 13:05 13:05 13:05 WBC 10.5 (3.8-10.6) k/uL RBC 5.03 (3.80-5.40) m/uL Hgb 15.0 (11.4-16.0) gm/dL Hct 45.8 (34.0-46.0) % MCV 90.9 (80.0-100.0) fL MCH 29.7 (25.0-35.0) pg MCHC 32.7 (31.0-37.0) g/dL RDW 12.6 (11.5-15.5) % Plt Count 303 (150-450) k/uL Neutrophils % 69 % Lymphocytes % 24 % Monocytes % 3 % Eosinophils % 2 % Basophils % 1 % Neutrophils # 7.2 (1.3-7.7) k/uL Lymphocytes # 2.5 (1.0-4.8) k/uL Monocytes # 0.4 (0-1.0) k/uL Eosinophils # 0.2 (0-0.7) k/uL Basophils # 0.1 (0-0.2) k/uL Sodium 141 (137-145) mmol/L Potassium 4.0 (3.5-5.1) mmol/L Chloride 107 (98-107) mmol/L Carbon Dioxide 27 (22-30) mmol/L Anion Gap 7 mmol/L BUN 9 (7-17) mg/dL Creatinine 0.72 (0.52-1.04) mg/dL Est GFR (CKD-EPI)AfAm >90 (>60 ml/min/1.73 sqM) Est GFR (CKD-EPI)NonAf >90 (>60 ml/min/1.73 sqM) Glucose 96 (74-99) mg/dL Plasma Lactic Acid Ari 1.0 (0.7-2.0) mmol/L Calcium 9.6 (8.4-10.2) mg/dL Total Bilirubin 0.3 (0.2-1.3) mg/dL AST 22 (14-36) U/L ALT 29 (4-34) U/L Alkaline Phosphatase 101 (38-126) U/L Total Protein 6.9 (6.3-8.2) g/dL Albumin 4.1 (3.5-5.0) g/dL Lipase 80 (23-300) U/L Urine Color Urine Appearance (Clear) Urine pH (5.0-8.0) Ur Specific [place] (1.001-1.035) Urine Protein (Negative) Urine Glucose (UA) (Negative) Urine Ketones (Negative) Urine Blood (Negative) Urine Nitrite (Negative) Urine Bilirubin (Negative) Urine Urobilinogen (<2.0) mg/dL Ur Leukocyte Esterase (Negative) 06/22/20 Range/Units 14:08 WBC (3.8-10.6) k/uL RBC (3.80-5.40) m/uL Hgb (11.4-16.0) gm/dL Hct (34.0-46.0) % MCV (80.0-100.0) fL MCH (25.0-35.0) pg MCHC (31.0-37.0) g/dL RDW (11.5-15.5) % Plt Count (150-450) k/uL Neutrophils % % Lymphocytes % % Monocytes % % Eosinophils % % Basophils % % Neutrophils # (1.3-7.7) k/uL Lymphocytes # (1.0-4.8) k/uL Monocytes # (0-1.0) k/uL Eosinophils # (0-0.7) k/uL Basophils # (0-0.2) k/uL Sodium (137-145) mmol/L Potassium (3.5-5.1) mmol/L Chloride (98-107) mmol/L Carbon Dioxide (22-30) mmol/L Anion Gap mmol/L BUN (7-17) mg/dL Creatinine (0.52-1.04) mg/dL Est GFR (CKD-EPI)AfAm (>60 ml/min/1.73 sqM) Est GFR (CKD-EPI)NonAf (>60 ml/min/1.73 sqM) Glucose (74-99) mg/dL Plasma Lactic Acid Ari (0.7-2.0) mmol/L Calcium (8.4-10.2) mg/dL Total Bilirubin (0.2-1.3) mg/dL AST (14-36) U/L ALT (4-34) U/L Alkaline Phosphatase (38-126) U/L Total Protein (6.3-8.2) g/dL Albumin (3.5-5.0) g/dL Lipase (23-300) U/L Urine Color Yellow Urine Appearance Clear (Clear) Urine pH 6.5 (5.0-8.0) Ur Specific [place] 1.018 (1.001-1.035) Urine Protein Negative (Negative) Urine Glucose (UA) Negative (Negative) Urine Ketones Negative (Negative) Urine Blood Negative (Negative) Urine Nitrite Negative (Negative) Urine Bilirubin Negative (Negative) Urine Urobilinogen <2.0 (<2.0) mg/dL Ur Leukocyte Esterase Negative (Negative) Disposition Clinical Impression: Abdominal pain, Rectus sheath hematoma Disposition: HOME SELF-CARE Condition: Stable Instructions (If sedation given, give patient instructions): Abdominal Pain (ED) Additional Instructions: Please follow-up with Dr. Robertson in regards to her symptoms. Return to the emergency room for any new or worsening symptoms Prescriptions: Acetaminophen-Codeine 300-30mg [Tylenol #3] 1 tab PO Q4H PRN #18 tablet PRN Reason: pain Is patient prescribed a controlled substance at d/c from ED?: Yes When asked, does pt state using other controlled substances?: No If prescribed controlled substance>3 days was MAPS reviewed?: Prescribed <3 Days If opioid is for acute pain is fill amount 7 days or less?: Yes If Rx opioid, was Start Talking consent form obtained?: Yes Referrals: None,Stated [Primary Care Provider] - 1-2 days Brendan Robertson DO [Doctor of Osteopathic Medicine] - 1-2 days Time of Disposition: 15:33
[2020-06-22 14:34] LABS: Appearance,Urine Clear (Clear); Bilirubin,Urine Negative (Negative); Blood,Urine Negative (Negative); Color,Urine Yellow; Glucose,Urine (UA) Negative (Negative); Ketones,Urine Negative (Negative); Leukocyte Esterase,Urine Negative (Negative); Nitrite,Urine Negative (Negative); PH, Urine 6.5 (5.0-8.0); Protein,Urine Negative (Negative); Specific Gravity,Urine 1.018 (1.001-1.035); Urobilinogen,Urine <2.0 mg/dL (<2.0)
--- NOTE | 2020-06-22 15:08 | CT ---
EXAMINATION TYPE: CT abdomen pelvis w con DATE OF EXAM: 06/22/2020 COMPARISON: None INDICATION: Pain/mass under csection scar. DLP: 1873.5 mGycm, Automated exposure control for dose reduction was used. CONTRAST: 100 mL of Isovue 300. Study performed without Oral Contrast TECHNIQUE: Axial images were obtained from above the diaphragm to the pubic rami in the axial plane a t 5 mm thick sections. Reconstructed images are reviewed on the computer in the coronal plane. FINDINGS: Limited CT sections are obtained the lung bases. The lung bases are clear. CT ABDOMEN: Liver: Normal Spleen: Normal Pancreas: Normal Adrenal glands: The adrenal glands are normal. Gallbladder: Normal Kidneys: No masses are evident. No hydronephrosis is present. No cysts are present. Delayed images were obtained through the kidneys, which remain unremarkable. Aorta: Normal Inferior vena cava: Normal. CT PELVIS: There is irregular thickening in the lower pelvic anterior wall. No central abnormal colle ction is evident. This area measures approximately 4.4 x 7.9 cm is in the suprapubic region. This may be solid. Hematoma or abscess is considered unlikely based on these images. Consider ultrasound for additional evaluation. MRI may be useful for evaluation. Loops of bowel within the abdomen and pelvis are normal. Studies performed without oral contrast limiting bowel evaluation. Appendix: Normal as visualized. Urinary bladder: Normal. Genitourinary structures: Uterus and ovaries are not identified. Osseous structures: No suspicious lytic or sclerotic lesions. IMPRESSIONS: 1. There appears be a solid soft tissue irregular area within the inferior most portion of the rectu s abdominis muscle in the suprapubic region. Additional workup is recommended.
[2020-06-22] MEDS ORDERED: MORPHINE SULFATE 4 MG/ML SYRINGE IVP STA (15:31)
== END 2020-06-22 15:55 | disposition home or self-care (01) ==
LOC: EC 12:06
DX: M79.81 Nontraumatic hematoma of soft tissue (principal); R10.31 Right lower quadrant pain; R11.0 Nausea; F17.200 Nicotine dependence, unspecified, uncomplicated; Z87.42 Personal history of other diseases of the female genital tract; Z98.890 Other specified postprocedural states; Z90.79 Acquired absence of other genital organ(s); Z98.51 Tubal ligation status; Z88.0 Allergy status to penicillin; Z88.5 Allergy status to narcotic agent
CPT/HCPCS: 36415; 80053; 83605; 83690; 85025; 81003; 74177; 99284; 96374; 96375; J2270; J1885; Q9967